=== PATIENT | male | born 1965 | race Caucasian/White ===

== ENCOUNTER 2024-03-23 08:30 | Emergency (ER) | payer MEDICAID ==
[2024-03-23] MEDS ORDERED: methylPREDNISolone Sod Succ/PF 125 MG/2 ML VIAL ONE (08:45)
[2024-03-23 09:01] LABS: Actual Bicarbonate (HCO3v) 22.1 mEq/L (22-28); Analyzer IN Cardio CS ER; Base Excess 2.4 mEq/L (-2 - +2); Calcium, Ionized (venous) 1.03 mmol/L (1.16-1.32); Chloride (VBG) 98 mmol/L (98-106); Hematocrit-VBG 58 % (42.0-52.0); Hemoglobin (Hb) 19.6 g/dL (13.1-17.2); Potassium (VBG) 3.91 mmol/L (3.70-5.30); Puncture Site Other Site; RapidComm Collect By CBN; Sodium 140 mmol/L (133-146); pH (venous) 7.569 (7.32-7.43)
[2024-03-23 09:19] LABS: #Basophils 0.02 10x3/uL (0.0-0.2); #Eosinophils 0.13 10x3/uL (0.0-0.5); #Monocytes 0.58 10x3/uL (0.0-1.1); #Neutrophils 3.52 10x3/uL (1.5-8.4); %Basophils 0.3 % (0.0-2.0); %Eosinophils 2.1 % (0.0-6.0); %Lymphocytes 32.3 % (18.0-47.0); %Monocytes 9.2 % (0.0-10.0); %Neutrophils 55.9 % (40.0-75.0); Hematocrit 51.8 % (38.8-50.0); Mean Corpuscular HGB CONC 34.7 g/dL (32.0-36.0); Mean Corpuscular Hemoglobin 33.6 pg (27.0-33.0); Mean Corpuscular Volume 96.6 fL (81.2-95.1); Platelet Count 181 10x3/uL (150-450); RBC Distribution Width 14.5 % (11.5-14.5); Red Blood Cell (RBC) Count 5.36 10x6/uL (4.32-5.72); White Blood Cell (WBC) Count 6.3 10x3/uL (3.5-10.5)
[2024-03-23] MEDS ORDERED: Lorazepam 2 MG/ML VIAL ONE (09:19)
[2024-03-23 09:28] LABS: Anion Gap 22 mmol/L (10-20); BUN (Urea Nitrogen) 20 mg/dL (8.4-25.7); Calc. Creatinine Clearance 0 mL/min (70-130); Calcium 9.6 mg/dL (7.8-10.44); Carbon Dioxide 22 mmol/L (22-29); Chloride 99 mmol/L (98-107); Estimated GFR 100; Glucose 116 mg/dL (70-105); Potassium 4.4 mmol/L (3.5-5.1); Sodium 139 mmol/L (136-145)
[2024-03-23 09:50] LABS: Troponin I Less than 0.010 ng/mL (< 0.028)
[2024-03-23 10:38] LABS: Actual Bicarbonate (HCO3v) 24.5 mEq/L (22-28); Analyzer IN Cardio CS ER; Base Excess 0.7 mEq/L (-2 - +2); Calcium, Ionized (venous) 1.12 mmol/L (1.16-1.32); Chloride (VBG) 99 mmol/L (98-106); Hematocrit-VBG 51 % (42.0-52.0); Hemoglobin (Hb) 17.3 g/dL (13.1-17.2); Potassium (VBG) 3.66 mmol/L (3.70-5.30); Puncture Site Other Site; RapidComm Collect By CBN; Sodium 139 mmol/L (133-146); pH (venous) 7.435 (7.32-7.43)
[2024-03-23] MEDS ORDERED: Ventolin HFA Inhaler 60 PUFF INHALER ONE (10:57)
== END 2024-03-23 11:05 | disposition home or self-care (01) ==
LOC: CSHERS 08:30
DX: J44.1 Chronic obstructive pulmonary disease with (acute) exacerbation (principal)
CPT/HCPCS: 71045; 80048; 82805; 84484; 85025; 93005; 94640; 96374; 96375; J2060; J2919